=== PATIENT | male | born 1970 | race Caucasian/White ===

== ENCOUNTER → 2018-09-06 | Outpatient (CLI) | payer BC ==
[~2018-09-06] MED LIST: GADOBUTROL 7.5 MMOL/7.5 ML VIAL INT ART ONE; IOHEXOL 300 MG/ML 50 ML VIAL. INT ART ONE; LIDOCAINE 1% Multi-Dose 20 ML VIAL. ID ONE
--- NOTE | 2018-09-06 16:13 | KCIC ---
MR arthrogram of the left shoulder Indication: SLAP tear, limited range of motion, for one year. Technique: Intra-articular contrast injected into the glenohumeral joint and is reported separately. FINDINGS: Artifact: No significant image degradation. Acromioclavicular joint: Intact. Rotator cuff: * Supraspinatus-infraspinatus tendon: Intact * Subscapularis tendon: Intact * Muscle bulk: Within normal limits * Subacromial subdeltoid bursa: No significant fluid or contrast accumulation. Articular cartilage: No acute cartilage defect or advanced DJD. Labrum: Tear of the anteroinferior labrum, also extends into the posteroinferior quadrant. Biceps tendon: Intact Bones: No lesion or acute fracture. Soft tissue: No acute findings. Impression: Anteroinferior labral tear, from about 3:00 through 7:00. Electronically signed by: Kevin Razo MD (09/06/2018 4:09 PM) [id number]
--- NOTE | 2018-09-06 17:02 | KCIC ---
PROCEDURE: Left shoulder injection using fluoroscopic guidance, prior to MR. HISTORY: Shoulder pain. TECHNIQUE: The procedure was explained to the patient as were potential risks, including among others infection, bleeding or allergic reaction. All questions were answered. Informed written and verbal consent was obtained. The shoulder was prepped and draped in the usual sterile manner. Following administration of local anesthetic, a 22-gauge needle was advanced into the anterior shoulder. Following negative aspiration, 12 cc of a solution of 5cc Omnipaque-300 contrast, 5 cc 1% lidocaine, 10 cc normal saline, and 0.1 cc gadolinium was injected without difficulty. The needle was removed. There was good hemostasis at the injection site. The patient left in stable condition without immediate complication. A single spot image is obtained. FLUOROSCOPY TIME:?18 seconds Electronically signed by: Kevin Razo MD (09/06/2018 4:58 PM) [id number]
== END | disposition home or self-care (01) ==
LOC: KCIC 14:24
PROVIDERS: ATTEND Family Medicine Sports Medicine
DX: S43.432A Superior glenoid labrum lesion of left shoulder, initial encounter (principal); X58.XXXA Exposure to other specified factors, initial encounter; Y93.89 Activity, other specified; Y92.89 Other specified places as the place of occurrence of the external cause; Y99.8 Other external cause status
CPT/HCPCS: 73040; 73222; A9585; Q9967